=== PATIENT | female | born 2005 | race Hispanic/Latino ===

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

== ENCOUNTER 2024-05-10 11:27 | Emergency (ER) | payer SELFPAY, OTHER ==
[~2024-05-10 11:27] MED LIST: Iopamidol 300 61% 100 ML VIAL FS ONE
[2024-05-10] MEDS ORDERED: fentaNYL 50 mcg/mL 1 mL Vial ONE (11:59)
[2024-05-10 12:14] LABS: Bilirubin Neg (Negative); Blood, Urine Negative (Negative); Clarity Clear (Clear); Glucose, Urine (Dipstick) Normal (Negative); Ketone, Urine Negative (Negative); Leukocyte Negative (Negative); Nitrite Negative (Negative); Protein, Urine (Dipstick) 15 mg/dl (Neg-Trace); Urobilinogen Normal mg/dL (Less than 2)
[2024-05-10 12:16] LABS: Pregnancy Test - Urine (BHCG) Negative (Negative)
[2024-05-10 12:16] LABS: #Basophils 0.02 10x3/uL (0.0-0.2); #Eosinophils 0.11 10x3/uL (0.0-0.5); #Monocytes 0.57 10x3/uL (0.0-1.1); %Basophils 0.3 % (0.0-2.0); %Eosinophils 1.5 % (0.0-6.0); %Lymphocytes 28.2 % (18.0-47.0); %Monocytes 7.8 % (0.0-10.0); %Neutrophils 61.9 % (40.0-75.0); Hematocrit 44.6 % (34.9-44.5); Hemoglobin 14.3 g/dL (12.0-15.5); Mean Corpuscular HGB CONC 32.1 g/dL (32.0-36.0); Mean Corpuscular Hemoglobin 27.7 pg (27.0-33.0); Mean Corpuscular Volume 86.4 fL (81.6-98.3); Mean Platelet Volume 9.7 fL (7.4-10.4); Platelet Count 242 10x3/uL (150-450); RBC Distribution Width 13.1 % (11.5-14.5); Red Blood Cell (RBC) Count 5.16 10x6/uL (3.90-5.03); White Blood Cell (WBC) Count 7.3 10x3/uL (3.5-10.5)
[2024-05-10 12:17] LABS: Pregu Control Background? CLEAR/WHITE (CLR/WHITE); Pregu Control Bar Appear? YES (CONTROL BAR)
[2024-05-10 12:27] LABS: Bacteria/HPF 3+ HPF (None Seen); CAUTI Indications for Culture Pelvic or flank pain; Mucous/LPF 1+ LPF (<2+); RBC/HPF 0-3 HPF (0-3); WBC/HPF 0-3 HPF (0-3)
[2024-05-10 12:28] LABS: PTT 28.5 sec (22.0-33.0); Prothrombin Time 10.7 sec (9.5-12.1)
[2024-05-10 12:29] LABS: Urine Culture Reflex No No
[2024-05-10 12:30] LABS: ALT (SGPT) 43 U/L (8-55); AST (SGOT) 23 U/L (5-34); Albumin 3.9 g/dL (3.5-5.0); Alkaline Phosphatase 78 U/L (40-100); Anion Gap 12 mmol/L (10-20); BUN (Urea Nitrogen) 10 mg/dL (7.0-18.7); Bilirubin, Total 0.5 mg/dL (0.2-1.2); Calc. Creatinine Clearance 0 mL/min (70-130); Calcium 9.5 mg/dL (7.8-10.44); Carbon Dioxide 24 mmol/L (22-29); Chloride 108 mmol/L (98-107); Estimated GFR 119; Globulin 3.1 g/dL (2.4-3.5); Glucose 108 mg/dL (70-105); Potassium 3.6 mmol/L (3.5-5.1); Sodium 140 mmol/L (136-145)
== END 2024-05-10 14:25 | disposition home or self-care (01) ==
LOC: CSHERS 11:27
DX: S16.1XXA Strain of muscle, fascia and tendon at neck level, initial encounter (principal); M50.20 Other cervical disc displacement, unspecified cervical region; R10.84 Generalized abdominal pain; R10.30 Lower abdominal pain, unspecified; V89.2XXA Person injured in unspecified motor-vehicle accident, traffic, initial encounter
CPT/HCPCS: 72125; 74177; 80053; 81001; 81025; 85025; 85610; 85730; 94760; 96361; 96374; J3010; Q9967